=== PATIENT | male | born 1995 | race Caucasian/White ===

== ENCOUNTER 2018-12-24 07:53 | Emergency (ER) | payer SELFPAY ==
[2018-12-24] MEDS ORDERED: ONDANSETRON 4 MG/2 ML VIAL ONE (08:52)
[2018-12-24] MEDS ORDERED: ONDANSETRON 4 MG/2 ML VIAL IVP ONE (08:54)
[2018-12-24] MEDS ORDERED: NS 1,000 ML IV ONE (08:55)
[2018-12-24] MEDS ORDERED: fentaNYL 100 MCG/2 ML INJ IVP ONE (09:14)
--- NOTE | 2018-12-24 09:44 | EDPHY ---
General - History Smoking Status: Never smoked Time Seen by Provider: 12/24/18 09:02 Narrative: CLINICAL IMPRESSION: Constipation ASSESSMENT/PLAN: 23-year-old male presents to the emergency department with 5 days of constipation in the setting of narcotic use for recent dental abscess. Patient reports no prior history of constipation, is able to pass flatus, and has no radiologic evidence of small-bowel obstruction, free air, perforated viscus, or significant colonic dilation. He received a fleets enema was able to evacuate some stool with subjective improvement in discomfort. He was offered suppositories in the ED and declined. I gave prescriptions for suppositories and viscous lidocaine to use if needed. We discuss stool softeners, MiraLax, water, fiber fruits and vegetables. He will follow up with primary care. Warning signs return to ED sooner alignment discharge. DIFFERENTIAL DX: Differential includes but not limited to constipation, obstipation, rectal impaction, small-bowel obstruction ED PROCEDURES: Patient initially refused x-rays, but later changed his mind ED COURSE: Plan for this patient. X-ray shows no evidence of SBO, significant colonic dilation, free air, He has an IV in place. He is requesting a small dose of pain medication and does appear significantly uncomfortable. Would like to try an enema. Small dose of fentanyl given prior to this. 10:20 a.m.:. Patient reassessed. Able to have 2 small bowel movements in the ED. Reports his pain is now gone. Would like to go home. Will give prescription for this could all suppository and lidocaine jelly if needed. He is refusing these in the ED. CHIEF COMPLAINT: Constipation HPI: 23-year-old male presents to the emergency department complaining of 3-4 days of constipation. Patient reports last bowel movement was 5 days ago. He has been taking Vicodin recently for a tooth abscess but stopped taking this yesterday. He reports no other chronic narcotic use and no history of chronic constipation. No prior abdominal surgery or history of SBO. He reports he is able to pass gas from his rectum. He has only tried 1 tablet of a laxative over -the-counter. He has not tried any increase in water intake, fiber, or fruits or vegetables. He reports rectal and abdominal pain. No reported fevers or chills. He does not have insurance and would prefer to keep his workup to a minimum. PAST MEDICAL HISTORY: Recent dental abscess See triage summary and nurse notes for addition applicable history Pertinent Past Surgical History: None reported Family History: Noncontributory Social History: Nonsmoker, no history of constipation, here with his stepmother REVIEW OF SYSTEMS: A full 10 point review of systems was negative except for those mentioned in HPI. PHYSICAL EXAM: General Appearance: Alert, oriented, appropriate, cooperative, tremulous, overweight, appears uncomfortable but is cooperative, hypertensive no hypoxia. Respiratory: There are no retractions, lungs are clear to auscultation. Cardiac: Regular rate and rhythm, no murmurs or gallops. Gastrointestinal: Abdomen is soft, generalized tenderness throughout, more so to the lower abdomen, bowel sounds hypoactive no masses/hernia, no rigidity, guarding or focal peritoneal findings. Patient refused rectal exam Skin: Warm, dry, no rashes, no nodules on palpation. MEDICAL DECISION MAKING: Patient was seen independently. Secondary supervising physician at time of evaluation was: Dr. Pina. Diagnosis: Constipation. New, requires workup Summary: See Assessment and Plan for summary of ED visit Independent visualization of images, tracing, or specimens: Yes Patient Progress: Improved. (Gen Nava) Medical Decision Making: The patient was evaluated and managed by the physician assistant center manager. I have reviewed this chart and I agree with the findings and plan of care as documented , as indicated by my signature. I am the secondary supervising physician. ( Ami Pina) - Objective Vital Signs: Initial Vital Signs Temperature (C) 36.6 C 12/24/18 07:58 Heart Rate 96 12/24/18 07:58 Respiratory Rate 18 01/23/19 07:58 Blood Pressure 148/106 H 12/24/18 07:58 O2 Sat (%) 99 12/24/18 07:58 O2 Delivery Mode Room Air Allergies/Adverse Reactions: amoxicillin Allergy (Verified 12/24/18 08:02) Home Medications: Medication Instructions Recorded Bisacodyl [Dulcolax] 10 mg RC DAILY PRN #5 supp.rect 12/24/18 Hydrocodone-Acetamin 5-325 mg 12/24/18 Lidocaine 2% Jelly [Lidocaine 2% 2 ml MM DAILY PRN #5 jelly 12/24/18 Jelly (*)] Medications Given: Discontinued Medications Fentanyl (Sublimaze) 50 mcg IVP EDNOW ONE Stop: 12/24/18 09:15 Last Admin: 12/24/18 09:46 Dose: Not Given Sodium Chloride (Ns) 1,000 mls @ 0 mls/hr IV ONCE ONE; Wide Open PRN Reason: Protocol Stop: 12/24/18 08:56 Last Admin: 12/24/18 09:00 Dose: 1,000 mls Lactulose 200 gm/ Sodium (Chloride) 1,000 mls @ 0 mls/hr SD Q6HRS SUNNY PRN Reason: As Directed Stop: 01/23/19 11:59 Last Admin: 12/24/18 09:57 Dose: 1,000 mls Ondansetron HCl (Zofran) 4 mg IVP EDNOW ONE Stop: 12/24/18 08:55 Last Admin: 12/24/18 09:00 Dose: 4 mg Departure - Departure Disposition: Home, Routine, Self-Care Clinical Impression: Constipation Condition: Good Instructions: Constipation (ED) Additional Instructions: DISCHARGE INSTRUCTIONS FROM YOUR DOCTOR Thank you for visiting our emergency department today. Please keep in mind that discharge from the emergency department does not mean that there is nothing wrong - it simply means that we have not identified an emergency condition that requires further evaluation or treatment in the hospital. You should always plan to follow up with primary care for re-evaluation of your condition in the next 2-3 days. If you have been referred to a specialist, please call as soon as possible (today or tomorrow) to schedule your follow up appointment at the appropriate time. YOUR BEING DISCHARGED WITH A DIAGNOSIS OF CONSTIPATION. NO EVIDENCE OF BOWEL OBSTRUCTION. HE RECEIVED AN ENEMA IN THE ER. A PRESCRIPTION FOR THIS COULD ALL SUPPOSITORY AND LIDOCAINE JELLY WAS GIVEN TO USE IF NEEDED. YOU HAVE DECLINED THESE IN THE ED. WE RECOMMEND USING MIRALAX [id number]. FILL 1 CAPSULE WITH MIRALAX GRANULES, MIXED WITH A LARGE 8 OZ GLASS OF WATER AND TAKE 2 GLASSES OF THIS OVER 1 HR. YOU MAY ALSO WANT TO CONSIDER GETTING COLACE AND GLYCERIN SUPPOSITORIES AT THE [facility]. INCREASE FRUITS, VEGETABLES AND FIBER. INCREASED WATER INTAKE. RETURN TO THE EMERGENCY DEPARTMENT IF YOU ARE UNSUCCESSFUL AT HAVING A BOWEL MOVEMENT, INCREASED ABDOMINAL PAIN OR DISTENTION , DEVELOPMENT OF FEVERS, INABILITY TO PASS STOOL OR GAS FROM HER BOTTOM, VOMITING, OR ANY OTHER CONCERNS. People present with illnesses and injuries in different ways, and it is always possible that we have missed something. You may always return for re-evaluation if symptoms worsen or if they are not improving or if you develop new/different symptoms. Again, thank you for choosing our emergency department. We hope that you feel better. Referrals: NONE *PRIMARY CARE P,. [Primary Care Provider] - As per Instructions [facility],. [Clinic] - 1 day, if not improved Prescriptions: Bisacodyl [Dulcolax] 10 mg RC DAILY PRN #5 supp.rect PRN Reason: Constipation Lidocaine 2% Jelly [Lidocaine 2% Jelly (*)] 2 ml MM DAILY PRN #5 jelly PRN Reason: Pain, Breakthrough
[2018-12-24 10:49] VITALS: BP 132/85
[2018-12-24] MEDS ORDERED: LACTULOSE 200 GM in SODIUM CL IRRIG SOLUTION 700 ML PR SCH (12:00)
== END 2018-12-24 10:50 | disposition home or self-care (01) ==
DX: K59.00 Constipation, unspecified (principal); E86.9 Volume depletion, unspecified; Z88.0 Allergy status to penicillin
CPT/HCPCS: 96374; J2405